=== PATIENT | female | born 1935 | race Caucasian/White ===

== ENCOUNTER 2016-06-10 16:45 | Emergency (ER) | payer MEDICARE, OTHER ==
[2016-06-10 16:59] VITALS: TEMP 96.7; BMI 22.2
--- NOTE | 2016-06-10 17:31 | PDOC ---
History of Present Illness - General History Source: Patient Exam Limitations: No Limitations - History of Present Illness Initial Comments: 06/10/16 18:57 The patient is a 80 year old female, with significant past medical history HIV, vertigo, HTN, anemia who presents today with family after an episode of vertigo that caused her to fall and hit her head. The patient was apparently in her usual state of health this morning. Sometime in the afternoon she felt unwell with nausea, vomiting, and dizziness. One of her daughters got a call from her at 3:00pm. The patient had little memory of the incident and they are unsure where she fell.There is a hematoma to the right forehead as evidence of the fall. She reports localized pain to the forehead and dizziness. Her symptoms are exacerbated secondary to sitting up. Denies chest pain, SOB, palpitation, cough. Allergies: codeine PCP- Dr. Currie <Meliza Amin - Last Filed: 06/10/16 18:56> - General History Source: Patient Exam Limitations: No Limitations <Debra Little - Last Filed: 06/13/16 07:32> - General Chief Complaint: Lightheaded Stated Complaint: INJURY Time Seen by Provider: 06/10/16 17:07 Past History <Meliza Amin - Last Filed: 06/10/16 18:56> - Past Medical History Anemia: Yes Asthma: No Cancer: No Cardiac Disorders: No CVA: No COPD: No CHF: No Dementia: No Diabetes: No Dialysis: No GI Disorders: No Disorders: No HTN: Yes Hypercholesterolemia: No HIV: Yes Kidney Stones: No Liver Disease: No Suicide Attempt (Hx): No Seizures: No Thyroid Disease: No Other medical history: vertigo - Surgical History Abdominal Surgery: Yes (lg growth removed from rectum) Appendectomy: Yes Cardiac Surgery: No Cholecystectomy: Yes GI Surgery: Yes (lg growth removed from rectum) Lung Surgery: No Neurologic Surgery: No Orthopedic Surgery: No - Immunization History Td Vaccination: Yes Immunization Up to Date: Yes - Psycho/Social/Smoking Cessation Hx Anxiety: No Suicidal Ideation: No Smoking Status: No Smoking History: Never smoked Have you smoked in the past 12 months: No Number of Cigarettes Smoked Daily: 0 Cigars Per Day: 0 Information on smoking cessation initiated: No Hx Alcohol Use: No Drug/Substance Use Hx: No Substance Use Type: None Hx Substance Use Treatment: No <Debra Little - Last Filed: 06/13/16 07:32> - Past Medical History Allergies/Adverse Reactions: Allergies Allergy/AdvReac Type Severity Reaction Status Date / Time codeine [Codeine] Allergy Unknown Verified 06/10/16 16:59 Home Medications: Ambulatory Orders Bimatoprost [Lumigan] 1 drop IO DAILY #1 bottle 12/31/15 Brimonidine Tartrate/Timolol [Combigan Eye Drops] 5 ml OP DAILY #1 bottle Cyproheptadine [Periactin -] 4 mg PO HS #30 tablet 02/20/16 Abacavir Sulfate/Lamivudine [Epzicom Tablet] 1 tablet PO DAILY #30 tablet Aspirin [Aspirin EC] 81 mg PO DAILY #30 tablet. 06/09/16 Cholecalciferol (Vitamin D3) [Vitamin D3] 50,000 unit PO WEEKLY #4 capsule 06/09 Rilpivirine HCl [Edurant] 25 mg PO DAILY #30 tablet 06/09/16 Amox-Tr/K Cl [Augmentin 500Mg Tablet] 1 tab PO BID #20 tablet 06/10/16 Meclizine HCl 25 mg PO TID #30 tablet 06/10/16 Ondansetron [Zofran *Odt*] 4 mg SL TID #30 od.tablet 06/10/16 Review of Systems - Review of Systems Able to Perform ROS?: Yes Comments:: 06/10/16 18:57 GENERAL/CONSTITUTIONAL: No: fever, chills, weakness, loss of appetite. HEAD, EYES, EARS, NOSE AND THROAT: No: change in vision, ear pain, discharge, sore throat, throat swelling. CARDIOVASCULAR: No: chest pain, lightheadedness, palpitations, syncope RESPIRATORY: No: cough, shortness of breath, wheezing, hemoptysis, stridor. GASTROINTESTINAL: Yes: nausea, vomiting. No: abdominal cramping, diarrhea, rectal bleeding, constipation. GENITOURINARY: No: dysuria, hematuria, frequency, urgency, flank pain. MUSCULOSKELETAL: No: back pain, neck pain, joint pain, muscle swelling or pain SKIN: No: lesions, pallor, rash or easy bruising. NEUROLOGIC: Yes: dizziness. No: headache, vertigo, paresthesias, weakness ENDOCRINE: No: unexplained weight gain or loss HEMATOLOGIC/LYMPHATIC: No: anemia, easy bleeding, swelling nodes <JarrodirisMeliza james - Last Filed: 06/10/16 18:56> *Physical Exam - Vital Signs Last Vital Signs Temp Pulse Resp BP Pulse Ox 96.7 F L 92 H 18 148/70 99 06/10/16 16:56 06/10/16 16:56 06/10/16 16:56 06/10/16 16:56 06/10/16 16:56 - Physical Exam Comments: 06/10/16 18:57 GENERAL: The patient is alert to voice,in no acute distress. HEAD: +hematoma to the right forehead. EYES: PERRLA, horizontal nystagmus, no vertical no rotary nystagmus. EOMI, sclera anicteric, conjunctiva clear. ENT: Ears normal, nares patent, oropharynx clear without exudates. Dry mucous membranes. NECK: Normal range of motion, supple without lymphadenopathy, JVD, or masses. LUNGS: Breath sounds equal, clear to auscultation bilaterally. No wheezes, and no crackles. HEART:Regular rate and rhythm, normal S1 and S2 without murmur, rub or gallop. ABDOMEN: Soft, nontender, normoactive bowel sounds. No guarding, no rebound. EXTREMITIES: Normal range of motion, no edema. No clubbing or cyanosis. No erythema, or tenderness. NEUROLOGICAL: Normal finger to nose. No dysdiadokinesis. Cranial nerves II through XII grossly intact. Normal speech. No focal neurological deficits. MUSCULOSKELETAL: Back nontender to palpation, no CVA tenderness SKIN: Warm, Dry, normal turgor, no rashes or lesions noted. <EloisaMeliza - Last Filed: 06/10/16 18:56> - Vital Signs Last Vital Signs Temp Pulse Resp BP Pulse Ox 96.7 F L 92 H 18 148/70 99 06/10/16 16:56 06/10/16 16:56 06/10/16 16:56 06/10/16 16:56 06/10/16 16:56 <Debra Little - Last Filed: 06/13/16 07:32> Heart Score/ECG Review #1 ECG reviewed & interpreted by me at: 18:29 06/10/16 18:29 Twelve-lead EKG was performed and reviewed by me. There is normal sinus rhythm with a normal rate of 86 bpm. The axis is normal. The intervals are abnormal - pr:216ms, QRS:70ms, QTc:452ms. There are no ST elevations or depressions. T waves nml <Debra Little - Last Filed: 06/13/16 07:32> ED Treatment Course - LABORATORY CBC & Chemistry Diagram: 06/10/16 18:28 06/10/16 18:28 - ADDITIONAL ORDERS Additional order review: 06/10/16 18:28 RBC 4.34 MCV 100.4 H MCHC 32.1 RDW 14.3 MPV 9.1 Neutrophils % 88.7 H D Lymphocytes % 7.9 L D Monocytes % 3.0 L Eosinophils % 0.1 D Basophils % 0.3 - Medications Given in the ED: ED Medications Discontinued Medications Generic Name Dose Route Start Last Admin Trade Name Freq PRN Reason Stop Dose Admin Meclizine HCl 50 mg 06/10/16 18:13 06/10/16 18:42 Antivert - PO 06/10/16 18:14 50 mg ONCE ONE Administration Ondansetron HCl 4 mg 06/10/16 18:13 06/10/16 18:42 Zofran Injection IVPB 06/10/16 18:14 4 mg ONCE ONE Administration <Meliza Amin - Last Filed: 06/10/16 18:56> - LABORATORY CBC & Chemistry Diagram: 06/10/16 18:28 06/10/16 18:28 <Debra Little - Last Filed: 06/13/16 07:32> Medical Decision Making - Medical Decision Making 06/10/16 17:31 A portion of this note was documented by scribe services under my direction. I have reviewed the details of the note, within reason, and agree with the documentation with the following case summary and management plan written by me. Nursing documentation reviewed and incorporated into medical decision making This pt is a 80 yo F h/o HIV (on HAART) vertigo, HTN, anemia who presents today with family after an episode of vertigo that caused her to fall and hit her head. Pt was able to get herself up and called her daughter for help She has no memory of the events preceding her fall (+) nausea, vomiting Her symptoms are exacerbated secondary to sitting up. Pt struck her right forehead Denies preceding chest pain, SOB, palpitation Pt has horizontal nystagmus on examination Nml finger to nose (no pass pointing) Symptoms worsen when pt asked to sit forward Motor strength in tact in all extremities Sensation in tact will do labs will do Head CT Will give IVF, Zofan, Meclizine Pt signed out to Dr carney pending labs and head CT and re assessment <Debra Little - Last Filed: 06/13/16 07:32> *DC/Admit/Observation/Transfer - Attestations Scribe Attestion: 06/10/16 18:57 Documentation prepared by ARSENIO Forrester, acting as medical art therapist for Debra Little MD. <Meliza Amin - Last Filed: 06/10/16 18:56> <Debra Little - Last Filed: 06/13/16 07:32> Diagnosis at time of Disposition: Mastoiditis of left side, Closed head injury - Discharge Dispostion Disposition: HOME - Prescriptions Prescriptions: Amox-Tr/K Cl [Augmentin 500Mg Tablet] 1 tab PO BID #20 tablet Meclizine HCl 25 mg PO TID #30 tablet Ondansetron [Zofran *Odt*] 4 mg SL TID #30 od.tablet - Referrals Referrals: Tete Currie, ADMINISTRATIVE UNDERWRITER [Primary Care Provider] - - Patient Instructions Printed Discharge Instructions: DI for Closed Head Injury, DI for Mastoiditis- Adult
[2016-06-10] MEDS ORDERED: SODIUM CHLORIDE 1,000 ML IV STA (18:12)
[2016-06-10] MEDS ORDERED: ONDANSETRON 4 MG/2 ML VIAL IVPB ONE (18:13)
[2016-06-10] MEDS ORDERED: MECLIZINE HCL 25 MG TABLET (FP) PO ONE (18:13)
[2016-06-10] MEDS ORDERED: MECLIZINE HCL 25 MG TABLET (FP) ONE (18:29)
[2016-06-10] MEDS ORDERED: ONDANSETRON 4 MG/2 ML VIAL ONE (18:29)
[2016-06-10 18:49] LABS: BASOPHIL 0.3 % (0-2.0); EOSINOPHIL 0.1 % (0-4.5); MCH 32.2 pg (25.7-33.7); MCHC 32.1 g/dl (32.0-36.0); MEAN CELL VOLUME 100.4 fl (80-96); MEAN PLT VOLUME 9.1 fl (7.5-11.1); NEUTROPHILS 88.7 % (42.8-82.8); PLATELET COUNT 337 K/MM3 (134-434); RDW 14.3 % (11.6-15.6)
[2016-06-10 19:15] LABS: ALBUMIN 3.7 g/dl (3.4-5.0); ANION GAP 7 (8-16); CO2 27 mmol/L (21-32); CREATININE 1.1 mg/dL (0.55-1.02); GLUCOSE,RANDOM 139 mg/dL (74-106); SGOT/AST 21 U/L (15-37); SGPT/ALT 22 U/L (12-78)
[2016-06-10 19:18] LABS: ALK PHOS 134 U/L (45-117); BILIRUBIN,TOTAL 0.4 mg/dL (0.2-1.0); TOT PROT 7.9 g/dl (6.4-8.2); TROPONIN I < 0.02 ng/ml (0.00-0.05)
--- NOTE | 2016-06-10 20:33 | PDOC ---
*Physical Exam - Vital Signs Last Vital Signs Temp Pulse Resp BP Pulse Ox 96.7 F L 92 H 18 148/70 99 06/10/16 16:56 06/10/16 16:56 06/10/16 16:56 06/10/16 16:56 06/10/16 16:56 ED Treatment Course - LABORATORY CBC & Chemistry Diagram: 06/10/16 18:28 06/10/16 18:28 - ADDITIONAL ORDERS Additional order review: Laboratory Results 06/10/16 18:28 Sodium 138 Potassium 3.8 Chloride 104 Carbon Dioxide 27 Anion Gap 7 L BUN 12 Creatinine 1.1 H Creat Clearance w eGFR 48.04 Random Glucose 139 H D Calcium 9.0 Total Bilirubin 0.4 AST 21 ALT 22 D Alkaline Phosphatase 134 H Creatine Kinase 77 Troponin I < 0.02 Total Protein 7.9 Albumin 3.7 06/10/16 18:28 RBC 4.34 MCV 100.4 H MCHC 32.1 RDW 14.3 MPV 9.1 Neutrophils % 88.7 H D Lymphocytes % 7.9 L D Monocytes % 3.0 L Eosinophils % 0.1 D Basophils % 0.3 - Medications Given in the ED: ED Medications Discontinued Medications Generic Name Dose Route Start Last Admin Trade Name Freq PRN Reason Stop Dose Admin Meclizine HCl 50 mg 06/10/16 18:13 06/10/16 18:42 Antivert - PO 06/10/16 18:14 50 mg ONCE ONE Administration Ondansetron HCl 4 mg 06/10/16 18:13 06/10/16 18:42 Zofran Injection IVPB 06/10/16 18:14 4 mg ONCE ONE Administration *DC/Admit/Observation/Transfer Diagnosis at time of Disposition: Mastoiditis of left side Closed head injury Qualifiers: Encounter type: initial encounter Qualified Code(s): S09.90XA - Unspecified injury of head, initial encounter - Discharge Dispostion Disposition: HOME Condition at time of disposition: Stable Admit: No - Referrals Referrals: Tete Currie BUTCHER SCULLION [Primary Care Provider] - - Patient Instructions Printed Discharge Instructions: DI for Closed Head Injury, DI for Mastoiditis- Adult - Post Discharge Activity
[2016-06-10] MEDS ORDERED: CEFTRIAXONE 50 ML ONE (20:42)
[2016-06-10 23:02] VITALS: BP 124/70; PULSE 72
--- NOTE | 2016-06-11 09:36 | EKG ---
Test Reason : Blood Pressure : / mmHG Vent. Rate : 086 BPM Atrial Rate : 086 BPM P-R Int : 216 ms QRS Dur : 070 ms QT Int : 378 ms P-R-T Axes : 041 021 038 degrees QTc Int : 452 ms SINUS RHYTHM WITH 1ST DEGREE A-V BLOCK OTHERWISE NORMAL ECG WHEN COMPARED WITH ECG OF 23-DEC-2014 08:53, [place] INTERVAL HAS INCREASED Confirmed by NETTIE JUDGE, CELESTINO ([id number]) on 06/11/2016 9:36:38 AM Referred By: Confirmed By:CELESTINO SHEFFIELD MD
== END 2016-06-10 21:40 | disposition home or self-care (01) ==
LOC: JER 16:45
PROC: 3E03329 Introduction of Other Anti-infective into Peripheral Vein, Percutaneous Approach (ICD-10-PCS; principal; 2016-06-10)
PROC: 3E033GC Introduction of Other Therapeutic Substance into Peripheral Vein, Percutaneous Approach (ICD-10-PCS; 2016-06-10)
DX: S09.8XXA Other specified injuries of head, initial encounter (principal); S00.83XA Contusion of other part of head, initial encounter; H70.892 Other mastoiditis and related conditions, left ear; I10 Essential (primary) hypertension; D64.9 Anemia, unspecified; B20 Human immunodeficiency virus [HIV] disease; W19.XXXA Unspecified fall, initial encounter; Y93.89 Activity, other specified; Y92.038 Other place in apartment as the place of occurrence of the external cause
CPT/HCPCS: 36415; 70450-TC; 80053; 82550; 84484; 85025; 93005; 93010; 96374; 96375; 99284-25

== ENCOUNTER 2018-04-03 10:25 | Emergency (ER) | payer OTHER ==
[2018-04-03] MEDS ORDERED: SODIUM CHLORIDE 0.9% 500 ML INFUS.BAG IV ONE (10:44)
--- NOTE | 2018-04-03 10:52 | PDOC ---
History of Present Illness - General History Source: Patient, Family (daughter) Exam Limitations: Clinical Condition - History of Present Illness Initial Comments: 04/03/18 10:47 Patient with history of HIV positive on rodriguez therapy present with complain of nausea, vomiting and diarrhea since last night. Patient reported 4 episodes of diarrhea which she described as nonbloody. Patient report 1 episode of vomiting this morning which is nonbilious. Patient denies fever, chills, urinary frequency or urgency or abdominal pain. Patient denies any other symptoms Timing/Duration: 24 hours <Ildefonso Chiu - Last Filed: 04/03/18 12:59> <Clau Duvall - Last Filed: 04/03/18 13:18> - General Chief Complaint: Vomiting/Diarrhea Stated Complaint: VOMITING & DIARRHEA Time Seen by Provider: 04/03/18 10:36 Past History - Past Medical History Anemia: Yes Asthma: No Cancer: No Cardiac Disorders: No CVA: No COPD: No CHF: No Dementia: No Diabetes: No Dialysis: No GI Disorders: No Disorders: No HTN: Yes Hypercholesterolemia: No Kidney Stones: No Liver Disease: No Seizures: No Thyroid Disease: No - Surgical History Abdominal Surgery: Yes (lg growth removed from rectum) Appendectomy: Yes Cardiac Surgery: No Cholecystectomy: Yes GI Surgery: Yes (lg growth removed from rectum) Lung Surgery: No Neurologic Surgery: No Orthopedic Surgery: No - Immunization History Td Vaccination: Yes Immunization Up to Date: Yes - Suicide/Smoking/Psychosocial Hx Smoking Status: No Smoking History: Unknown if ever smoked Have you smoked in the past 12 months: No Number of Cigarettes Smoked Daily: 0 Cigars Per Day: 0 Hx Alcohol Use: No Drug/Substance Use Hx: No Substance Use Type: None Hx Substance Use Treatment: No <Ildefonso Chiu - Last Filed: 04/03/18 12:59> <Clau Duvall - Last Filed: 04/03/18 13:18> - Past Medical History Allergies/Adverse Reactions: Allergies Allergy/AdvReac Type Severity Reaction Status Date / Time codeine [Codeine] Allergy Unknown Verified 06/10/16 16:59 Home Medications: Ambulatory Orders Abacavir Sulfate/Lamivudine [Epzicom Tablet] 1 tablet PO DAILY #30 tablet Aspirin [Aspirin EC] 81 mg PO DAILY #30 tablet. 10/21/17 Brimonidine Tartrate/Timolol [Combigan 0.2%-0.5% Eye Drops] 5 ml OP DAILY #1 bottle 10/21/17 Rilpivirine HCl [Edurant] 25 mg PO DAILY #30 tablet 10/21/17 Butalb/Acetaminophen/Caffeine [Fioricet 50-300-40 mg Capsule] 1 each PO Q6H PRN #12 capsule 04/03/18 Ciprofloxacin HCl [Cipro] 500 mg PO BID 5 Days #10 tablet 04/03/18 Famotidine [Pepcid] 20 mg PO DAILY #5 tablet 04/03/18 Ondansetron [Zofran Odt -] 4 mg SL TID PRN #21 od.tablet 04/03/18 Review of Systems - Review of Systems Able to Perform ROS?: Yes Is the patient limited [place] proficient: No Constitutional: Yes: Malaise, Weakness. No: Chills, Fever HEENTM: No: Eye Pain, Blurred Vision, Tearing, Recent change in vision, Double Vision, Cataracts, Ear Pain, Ocular Prothesis, Ear Discharge, Nose Pain, Nose Congestion, Tinnitus, Nose Bleeding, Hearing Loss, Throat Pain, Throat Swelling , Mouth Pain, Dental Problems, Difficulty Swallowing, Mouth Swelling, Other Respiratory: No: Cough, Orthopnea, Shortness of Breath, SOB with Exertion, SOB at Rest, Stridor, Wheezing, Productive cough, Hemoptysis, Other Cardiac (ROS): No: Chest Pain, Edema, Irregular Heart Rate, Lightheadedness, Palpitations, Syncope, Chest Tightness, Other ABD/GI: Yes: See HPI, Diarrhea, Nausea, Vomiting. No: Abdominal Distended, Abd. Pain w/ defecation, Blood Streaked Bowels, Poor Appetite, Rectal Bleeding, Abdominal cramping, Tarry Stools : No: Burning, Dysuria, Discharge, Frequency, Flank Pain, Hematuria, Urgency All Other Systems: Reviewed and Negative <Ildefonso Chiu - Last Filed: 04/03/18 12:59> *Physical Exam - Vital Signs Last Vital Signs Temp Pulse Resp BP Pulse Ox 98 F 85 20 163/77 98 04/03/18 10:35 04/03/18 10:35 04/03/18 10:35 04/03/18 10:35 04/03/18 10:35 - Physical Exam Comments: 04/03/18 10:50 GENERAL: Well developed, well nourished. Awake and alert. No acute distress laying in bed HEENT: Normocephalic, atraumatic. PERRLA, EOMI. No conjunctival pallor. Sclera are non- icteric. Moist mucous membranes. Oropharynx is clear. NECK: Supple. Full ROM. No JVD. Carotid pulses 2+ and symmetric, without bruits. No thyromegaly. No lymphadenopathy. CARDIOVASCULAR: Regular rate and rhythm. No murmurs, rubs, or gallops. Distal pulses are 2+ and symmetric. PULMONARY: No evidence of respiratory distress. Lungs clear to auscultation bilaterally. No wheezing, rales or rhonchi. ABDOMINAL: Soft. Non-tender. Non-distended. No rebound or guarding. No organomegaly. Normoactive bowel sounds. MUSCULOSKELETAL Normal range of motion at all joints. No bony deformities or tenderness. No CVA tenderness. EXTREMITIES: No cyanosis. No clubbing. No edema. No calf tenderness. SKIN: Warm and dry. Normal capillary refill. No rashes. No jaundice. NEUROLOGICAL: Alert, awake, appropriate. Gait is normal without ataxia. PSYCHIATRIC: Cooperative. Good eye contact. Appropriate mood and affect. General Appearance: Yes: Nourished, Appropriately Dressed. No: Apparent Distress <Ildefonso Chiu - Last Filed: 04/03/18 12:59> - Vital Signs Last Vital Signs Temp Pulse Resp BP Pulse Ox 98 F 85 20 163/77 98 04/03/18 10:35 04/03/18 10:35 04/03/18 10:35 04/03/18 10:35 04/03/18 10:35 <Clau Duvall - Last Filed: 04/03/18 13:18> ED Treatment Course - LABORATORY CBC & Chemistry Diagram: 04/03/18 10:45 04/03/18 10:45 <Ildefonso Chiu - Last Filed: 04/03/18 12:59> - LABORATORY CBC & Chemistry Diagram: 04/03/18 10:45 04/03/18 10:45 - ADDITIONAL ORDERS Additional order review: Laboratory Results 04/03/18 04/03/18 04/03/18 11:28 11:21 10:45 Sodium 139 Potassium 4.9 Chloride 107 Carbon Dioxide 23 Anion Gap 9 BUN 9 Creatinine 0.9 Creat Clearance w eGFR > 60 Random Glucose 173 H Lactic Acid 1.6 Calcium 8.6 Total Bilirubin 0.5 AST 41 H ALT 19 Alkaline Phosphatase 101 Total Protein 7.7 Albumin 3.4 Urine Color Ltyellow Urine Appearance Clear Urine pH 5.0 Ur Specific [place] 1.013 Urine Protein 2+ H Urine Glucose (UA) 1+ H Urine Ketones Negative Urine Blood 1+ H Urine Nitrite Negative Urine Bilirubin Negative Urine Urobilinogen Negative Ur Leukocyte Esterase 2+ H 04/03/18 10:45 RBC 4.10 MCV 104.3 H MCHC 34.4 RDW 14.4 Neutrophils % 72.6 D Lymphocytes % 19.3 D Monocytes % 6.2 Eosinophils % 1.3 Basophils % 0.6 - Medications Given in the ED: ED Medications Discontinued Medications Generic Name Dose Route Start Last Admin Trade Name Albertq PRN Reason Stop Dose Admin Acetaminophen 650 mg 04/03/18 12:42 04/03/18 12:45 Tylenol - PO 04/03/18 12:43 650 mg ONCE ONE Administration Famotidine/Sodium Chloride 20 mg in 50 mls @ 100 mls/hr 04/03/18 11:31 11:54 Pepcid 20 Mg Premixed Ivpb - IVPB 04/03/18 12:00 100 mls/hr ONCE ONE Administration Ondansetron HCl 8 mg 04/03/18 11:31 04/03/18 11:54 Zofran Injection IVPB 04/03/18 11:32 8 mg ONCE ONE Administration Sodium Chloride 500 ml 04/03/18 10:44 04/03/18 10:55 Normal Saline - IV 04/03/18 10:45 500 ml ONCE ONE Administration <Clau Duvall - Last Filed: 04/03/18 13:18> Medical Decision Making - Medical Decision Making 04/03/18 10:50 Patient with history of HIV positive on meds present with complain of diarrhea, nausea and vomiting since last night. Patient with no fever or chills but reported weakness this morning. Clinical exam unremarkable. CBC, CMP and lactate levels ordered. UA urine culture ordered. IV hydration with 500mg normal saline ordered. Treat based on lab results. Will consider abdominal CT of abnormal lab 04/03/18 12:30 CBC/CMP with no acute findings. UA shows mild leukocytes. symptoms improved with IV hydration and pepcid with zofran. no need for abdominal given improved symptoms and lab values. symptoms likely gastroenteritis with possible UTI. patient will be discharged home on cipro, pepcid and zofran with GI follow-up as needed <Ildefonso Chiu - Last Filed: 04/03/18 12:59> - Medical Decision Making The patient was seen and evaluated in conjunction with midlevel provider under my direct supervision, ancillary studies were reviewed. I agree with the plan as outlined by CARLOS Markham 82 YOF with HIV compliant with haart p/w n/v/d since last night. no f/c. VS wnl, no fever, nontoxic appearing. labs and lytes wnl. UA with leuk esterase abdomen benign, no tenderness. NAD, CTAB and RRR. no CVAT given IVF and pepcid and analgesia. no indication for CT for now as normal labs including lactic, less likely ischemia and inflammation and infection. cipro x 1 week for diarrheal illness and possible UTI, f/u urine cx. rx zofran PRN nausea and vomiting hydration encouraged, supportive care. discharge in stable condition. pt and family made aware of impression and plan, agreeable. 04/03/18 13:18 <Clau Duvall - Last Filed: 04/03/18 13:18> *DC/Admit/Observation/Transfer - Discharge Dispostion Decision to Admit order: No <Ildefonso Chiu - Last Filed: 04/03/18 12:59> <Clau Duvall - Last Filed: 04/03/18 13:18> Diagnosis at time of Disposition: Gastroenteritis Nausea & vomiting Qualifiers: Vomiting type: unspecified Vomiting Intractability: non-intractable Qualified Code(s): R11.2 - Nausea with vomiting, unspecified UTI (urinary tract infection) Qualifiers: Urinary tract infection type: site unspecified Hematuria presence: with hematuria Qualified Code(s): N39.0 - Urinary tract infection, site not specified - Discharge Dispostion Disposition: HOME Condition at time of disposition: Stable - Prescriptions Prescriptions: Butalb/Acetaminophen/Caffeine [Fioricet 50-300-40 mg Capsule] 1 each PO Q6H PRN #12 capsule PRN Reason: headache Ciprofloxacin HCl [Cipro] 500 mg PO BID 5 Days #10 tablet Famotidine [Pepcid] 20 mg PO DAILY #5 tablet Ondansetron [Zofran Odt -] 4 mg SL TID PRN #21 od.tablet PRN Reason: nausea and vomiting - Referrals Referrals: Tete Currie FNP [Primary Care Provider] - - Patient Instructions Printed Discharge Instructions: Gastroenteritis Diet Additional Instructions: Take medications as prescribed. Increase fluid intake., To emergency room if worsening nausea or vomiting or worsening abdominal pain. Follow-up with primary care as soon as possible the next 2-3 days for reassessment - Post Discharge Activity
[2018-04-03 11:06] VITALS: BP 163/77; PULSE 85; TEMP 98; BMI 21.6
[2018-04-03 11:12] LABS: BASO % 0.6 % (0-2.0); EOS % 1.3 % (0-4.5); HEMATOCRIT 42.8 % (32.4-45.2); HEMOGLOBIN 14.7 GM/dL (10.7-15.3); LYMPH % 19.3 % (8-40); MCH 35.8 pg (25.7-33.7); MCHC 34.4 g/dl (32.0-36.0); MEAN CELL VOLUME 104.3 fl (80-96); MONO % 6.2 % (3.8-10.2); NEUT % 72.6 % (42.8-82.8); RDW 14.4 % (11.6-15.6); WHITE BLOOD COUNT 7.2 K/mm3 (4.0-10.0)
[2018-04-03] MEDS ORDERED: FAMOTIDINE 20 MG/50 ML IVPB 20 MG/50 ML MG IVPB ONE ×2 (11:31→11:45)
[2018-04-03] MEDS ORDERED: ONDANSETRON 4 MG/2 ML VIAL IVPB ONE (11:31)
[2018-04-03 11:43] LABS: ALBUMIN 3.4 g/dl (3.4-5.0); ALK PHOS 101 U/L (45-117); ANION GAP 9 MMOL/L (8-16); BILIRUBIN,TOTAL 0.5 mg/dL (0.2-1); BLOOD UREA NITROGEN 9 mg/dL (7-18); CALCIUM 8.6 mg/dL (8.5-10.1); CHLORIDE 107 mmol/L (98-107); CO2 23 mmol/L (21-32); CREATININE 0.9 mg/dL (0.55-1.3); GLUCOSE,RANDOM 173 mg/dL (74-106); POTASSIUM 4.9 mmol/L (3.5-5.1); SGOT/AST 41 U/L (15-37); SGPT/ALT 19 U/L (13-61); SODIUM 139 mmol/L (136-145); TOT PROT 7.7 g/dl (6.4-8.2)
[2018-04-03 11:43] LABS: URINE APPEARANCE CLEAR; URINE BILIRUBIN NEGATIVE (<2.0 mg/dL); URINE COLOR LTYELLOW; URINE GLUCOSE (UA) 1+ (NEGATIVE); URINE KETONE NEGATIVE (NEGATIVE); URINE LEUK ESTERASE 2+ (NEGATIVE); URINE NITRITE NEGATIVE (NEGATIVE); URINE PROTEIN 2+ (NEGATIVE); URINE UROBILINOGEN NEGATIVE mg/dL (0.2-1.0)
[2018-04-03] MEDS ORDERED: ONDANSETRON 4 MG/2 ML VIAL ONE (11:45)
[2018-04-03] MEDS ORDERED: ACETAMINOPHEN 325 MG TABLET (FP) PO ONE (12:42)
[2018-04-03] MEDS ORDERED: ACETAMINOPHEN 325 MG TABLET (FP) ONE (12:45)
[2018-04-03 12:49] LABS: EPI CELLS FEW /HPF (FEW)
[2018-04-03 12:53] LABS: PLATELET ESTIMATE ADEQUATE
[2018-04-03] MEDS ORDERED: CIPROFLOXACIN 500 MG TABLET (RESTRICTED TO ID) PO ONE (14:14)
== END 2018-04-03 14:51 | disposition home or self-care (01) ==
LOC: JER 10:25
PROC: 3E033GC Introduction of Other Therapeutic Substance into Peripheral Vein, Percutaneous Approach (ICD-10-PCS; principal; 2018-04-03)
DX: K52.9 Noninfective gastroenteritis and colitis, unspecified (principal); N39.0 Urinary tract infection, site not specified; B20 Human immunodeficiency virus [HIV] disease; I10 Essential (primary) hypertension; Z86.2 Personal history of diseases of the blood and blood-forming organs and certain disorders involving the immune mechanism
CPT/HCPCS: 36415; 80053; 81003; 81015; 83605; 85025; 87086; 96365; 99282-25

== ENCOUNTER 2018-05-01 08:29 | Emergency (ER) | payer MEDICARE, OTHER ==
[2018-05-01 08:57] VITALS: BP 155/84; PULSE 83; TEMP 98.1; BMI 23.3
--- NOTE | 2018-05-01 09:04 | PDOC ---
History of Present Illness <Lorraine Mari - Last Filed: 05/01/18 10:36> - History of Present Illness Initial Comments: 82 year old female with PMH of colorectal cancer (s/p resection), chronic constipation, hemorrhoids, and HIV positive (rodriguez therapy) presenting with rectal pain after defecation and lower abdominal pain. Patient states that she has been constipated for the last few days but was able to use the bathroom yesterday after using a suppository. She does use soaks in the bath occasionally as well too but without much relief of her hemorrhoids. She denies blood in the stool or on her toilet paper. Denies fevers, chills, nausea, vomiting, chest pain, SOB, or other symptoms. 05/01/18 14:52 <Nik Jiménez - Last Filed: 05/01/18 19:08> - General Chief Complaint: Pain Stated Complaint: LOWER BACK PAIN Time Seen by Provider: 05/01/18 09:04 Past History <Lorraine Mari - Last Filed: 05/01/18 10:36> - Past Medical History Anemia: Yes Asthma: No Cancer: No Cardiac Disorders: No CVA: No COPD: No CHF: No Dementia: No Diabetes: No Dialysis: No GI Disorders: No Disorders: No HTN: Yes Hypercholesterolemia: No Kidney Stones: No Liver Disease: No Seizures: No Thyroid Disease: No - Surgical History Abdominal Surgery: Yes (lg growth removed from rectum) Appendectomy: Yes Cardiac Surgery: No Cholecystectomy: Yes GI Surgery: Yes (lg growth removed from rectum) Lung Surgery: No Neurologic Surgery: No Orthopedic Surgery: No - Immunization History Td Vaccination: Yes Immunization Up to Date: Yes - Suicide/Smoking/Psychosocial Hx Smoking Status: No Smoking History: Never smoked Have you smoked in the past 12 months: No Number of Cigarettes Smoked Daily: 0 Cigars Per Day: 0 Information on smoking cessation initiated: No Hx Alcohol Use: No Drug/Substance Use Hx: No Substance Use Type: None Hx Substance Use Treatment: No <Nik Jiménez - Last Filed: 05/01/18 19:08> - Past Medical History Allergies/Adverse Reactions: Allergies Allergy/AdvReac Type Severity Reaction Status Date / Time codeine [Codeine] Allergy Unknown Verified 05/01/18 08:47 Home Medications: Ambulatory Orders Aspirin [Aspirin EC] 81 mg PO DAILY #30 tablet. 10/21/17 Brimonidine Tartrate/Timolol [Combigan 0.2%-0.5% Eye Drops] 5 ml OP DAILY #1 bottle 10/21/17 Abacavir Sulfate/Lamivudine [Epzicom Tablet] 1 tablet PO DAILY #30 tablet Rilpivirine HCl [Edurant] 25 mg PO DAILY #30 tablet 04/07/18 Docusate Sodium [Colace -] 100 mg PO TID #21 capsule 05/01/18 Sennosides [Senna] 8.6 mg PO HS PRN #30 tablet 05/01/18 Review of Systems - Review of Systems Constitutional: No: Chills, Diaphoresis, Fever, Loss of Appetite HEENTM: No: Blurred Vision, Tearing Respiratory: No: Cough, Orthopnea, Shortness of Breath Cardiac (ROS): No: Chest Pain, Edema, Irregular Heart Rate ABD/GI: Yes: Constipated. No: Blood Streaked Bowels, Diarrhea, Nausea, Rectal Bleeding, Vomiting : No: Dysuria, Discharge, Frequency Musculoskeletal: No: Joint Pain, Joint Swelling Integumentary: No: Lumps, Pallor, Pruritus, Rash Neurological: No: Headache, Numbness, Paresthesia Psychiatric: No: Anxiety, Depression, Frequent Crying Hematologic/Lymphatic: No: Anemia, Blood Clots, Easy Bleeding <Nik Jiménez - Last Filed: 05/01/18 19:08> *Physical Exam - Vital Signs Last Vital Signs Temp Pulse Resp BP Pulse Ox 98.1 F 83 18 155/84 98 05/01/18 08:48 05/01/18 08:48 05/01/18 08:48 05/01/18 08:48 05/01/18 08:48 <Lorraine Mari - Last Filed: 05/01/18 10:36> - Vital Signs Last Vital Signs Temp Pulse Resp BP Pulse Ox 98.1 F 83 18 155/84 98 05/01/18 08:48 05/01/18 08:48 05/01/18 08:48 05/01/18 08:48 05/01/18 08:48 - Physical Exam General Appearance: Yes: Nourished, Appropriately Dressed. No: Apparent Distress HEENT: positive: EOMI, [place], Normal ENT Inspection, Normal Voice Neck: positive: Trachea midline, Normal Thyroid, Supple. negative: Tender, Rigid Respiratory/Chest: positive: Lungs Clear, Normal Breath Sounds. negative: Chest Tender, Respiratory Distress Cardiovascular: positive: Regular Rhythm, Regular Rate Gastrointestinal/Abdominal: positive: Normal Bowel Sounds, Flat, Soft. negative : Tender Rectal Exam: positive: hemorrhoids (multiple large tender external hemorrhoids and one large internal hemorrhoid but all fluctuant/ reducible. No evidenceof thrombosis. No blood in rectal vault or sign or rectal bleed.). negative: normal exam Musculoskeletal: positive: Normal Inspection. negative: Decreased Range of Motion Extremity: positive: Normal Capillary Refill, Normal Inspection, Normal Range of Motion. negative: Tender Integumentary: positive: Normal Color, Dry, Warm Neurologic: positive: Fully Oriented, Alert, Normal Mood/Affect, Normal Response , Motor Strength 5/5 <Nik Jiménez - Last Filed: 05/01/18 19:08> Moderate Sedation - Procedure Monitoring Vital Signs: Procedure Monitoring Vital Signs Temperature 98.1 F 05/01/18 08:48 Pulse Rate 83 05/01/18 08:48 Respiratory Rate 18 05/01/18 08:48 Blood Pressure 155/84 05/01/18 08:48 O2 Sat by Pulse Oximetry (%) 98 05/01/18 08:48 <Lorraine Mari - Last Filed: 05/01/18 10:36> - Procedure Monitoring Vital Signs: Procedure Monitoring Vital Signs Temperature 98.1 F 05/01/18 08:48 Pulse Rate 83 05/01/18 08:48 Respiratory Rate 18 05/01/18 08:48 Blood Pressure 155/84 05/01/18 08:48 O2 Sat by Pulse Oximetry (%) 98 05/01/18 08:48 <Nik Jiménez - Last Filed: 05/01/18 19:08> ED Treatment Course - ADDITIONAL ORDERS Additional order review: Laboratory Results 05/01/18 10:00 Urine Color Straw Urine Appearance Clear Urine pH 6.0 Ur Specific [place] 1.009 L Urine Protein 2+ H Urine Glucose (UA) Negative Urine Ketones Trace H Urine Blood Negative Urine Nitrite Negative Urine Bilirubin Negative Urine Urobilinogen Negative Ur Leukocyte Esterase Trace <Lorraine Mari - Last Filed: 05/01/18 10:36> Medical Decision Making - Medical Decision Making 82 year old female with non-thrombosed, non-bleeding hemorrhoids and rectal pain during bowel movements. Also complaining of lower abdominal pain in the setting of constipation. UA negative and patient refusing further workup. Discharged with preparation H, instructions for sitz baths, and senna/ colace. DC'd with PCP follow up as well. 05/01/18 19:00 <Nik Jiménez - Last Filed: 05/01/18 19:08> *DC/Admit/Observation/Transfer - Discharge Dispostion Decision to Admit order: No <Lorraine Mari - Last Filed: 05/01/18 10:36> <Nik Jiménez - Last Filed: 05/01/18 19:08> Diagnosis at time of Disposition: External hemorrhoid Low back pain Qualifiers: Chronicity: unspecified Back pain laterality: unspecified Sciatica presence: without sciatica Qualified Code(s): M54.5 - Low back pain - Discharge Dispostion Disposition: HOME Condition at time of disposition: Stable - Prescriptions Prescriptions: Docusate Sodium [Colace -] 100 mg PO TID #21 capsule Sennosides [Senna] 8.6 mg PO HS PRN #30 tablet PRN Reason: Constipation - Referrals Referrals: Tete Currie [facility]SO [Primary Care Provider] - - Patient Instructions Printed Discharge Instructions: DI for Hemorrhoids Additional Instructions: Preparation H cream, apply as directed. - Post Discharge Activity
--- NOTE | 2018-05-01 09:53 | PDOC ---
Attending Attestation - Resident Resident Name: Nik Jiménez - ED Attending Attestation I have performed the following: I have examined & evaluated the patient, The case was reviewed & discussed with the resident, I agree w/resident's findings & plan, Exceptions are as noted - HPI HPI: 82 yo F colorectal cancer s/p resection, constipation, hemorrhoids, HIV on ART presents with rectal pain after defecation. She states she had constipation all of last week, was straining. Currently denies rectal pain, but does have mild low back pain. - Physicial Exam PE: GENERAL: Awake, alert, and fully oriented, in no acute distress HEAD: No signs of trauma EYES: PERRLA, EOMI, sclera anicteric, conjunctiva clear ENT: Auricles normal inspection, hearing grossly normal, nares patent, oropharynx clear without exudates. Moist mucosa NECK: Normal ROM, supple, no lymphadenopathy, JVD, or masses LUNGS: Breath sounds equal, clear to auscultation bilaterally. No wheezes, and no crackles HEART: Regular rate and rhythm, normal S1 and S2, no murmurs, rubs or gallops ABDOMEN: Soft, nontender, normoactive bowel sounds. No guarding, no rebound. No masses. No CVAT. EXTREMITIES: Normal range of motion, no edema. No clubbing or cyanosis. No cords, erythema, or tenderness NEUROLOGICAL: Cranial nerves II through XII grossly intact. Normal speech, normal gait SKIN: Warm, Dry, normal turgor, no rashes or lesions noted. - Medical Decision Making Stool softeners to prevent inflaming the hemorrhoids. No signs of acute abdomen. No signs of kidney stone. UA negative for signs of UTI.
[2018-05-01 10:19] LABS: URINE APPEARANCE CLEAR; URINE BILIRUBIN NEGATIVE (<2.0 mg/dL); URINE COLOR STRAW; URINE GLUCOSE (UA) NEGATIVE (NEGATIVE); URINE KETONE TRACE (NEGATIVE); URINE LEUK ESTERASE TRACE (NEGATIVE); URINE NITRITE NEGATIVE (NEGATIVE); URINE PROTEIN 2+ (NEGATIVE); URINE UROBILINOGEN NEGATIVE mg/dL (0.2-1.0)
[2018-05-01 10:36] LABS: EPI CELLS RARE /HPF (FEW); URINE MUCUS RARE
== END 2018-05-01 11:07 | disposition home or self-care (01) ==
LOC: JER 08:29
DX: M54.5 Low back pain (principal); K64.4 Residual hemorrhoidal skin tags; Z85.038 Personal history of other malignant neoplasm of large intestine; Z21 Asymptomatic human immunodeficiency virus [HIV] infection status
CPT/HCPCS: 81003; 81015; 99282-25

== ENCOUNTER 2019-02-16 16:58 | Inpatient (IN) | payer MEDICARE, OTHER ==
[2019-02-16] MEDS ORDERED: MECLIZINE HCL 25 MG TABLET (FP) PO ONE (17:10)
[2019-02-16] MEDS ORDERED: SODIUM CHLORIDE 1,000 ML IV STA (17:10)
[2019-02-16] MEDS ORDERED: ONDANSETRON 4 MG/2 ML VIAL IVPUSH ONE (17:10)
--- NOTE | 2019-02-16 17:10 | PDOC ---
Rapid Medical Evaluation Time Seen by Provider: 02/16/19 17:06 Medical Evaluation: Allergies Allergy/AdvReac Type Severity Reaction Status Date / Time codeine [Codeine] Allergy Unknown Verified 05/01/18 08:47 02/16/19 17:07 Patient presents to ED with complaints of: n/v and dizziness worse when sitting up, + vertigo, no meclizine taken due to n/v, no cp, sob, fever, hx hiv patient on brief exam: vss, actively dry heaving in triage Patient ordered for: labs, urine, ekg, meds, ivf, zofran Patient to proceed to the ED Discharge Disposition - Diagnosis Nausea, Leukocytosis, Vomiting, UTI (urinary tract infection) - Discharge Dispostion Condition at time of disposition: Fair - Referrals - Patient Instructions - Post Discharge Activity
[2019-02-16] MEDS ORDERED: ONDANSETRON *ODT* 4 MG TABLET SL ONE (18:02)
[2019-02-16] MEDS ORDERED: ONDANSETRON *ODT* 4 MG TABLET ONE (18:04)
[2019-02-16] MEDS ORDERED: MECLIZINE HCL 25 MG TABLET (FP) ONE (18:05)
[2019-02-16 18:06] LABS: BASO % 0.4 % (0-2.0); EOS % 0.8 % (0-4.5); HEMOGLOBIN 13.6 GM/dL (10.7-15.3); LYMPH % 7.7 % (8-40); MCH 34.4 pg (25.7-33.7); MCHC 32.3 g/dl (32.0-36.0); MEAN CELL VOLUME 106.6 fl (80-96); MEAN PLT VOLUME 8.9 fl (7.5-11.1); MONO % 6.4 % (3.8-10.2); NEUT % 84.7 % (42.8-82.8); PLATELET COUNT 331 K/MM3 (134-434); RBC 3.94 M/mm3 (3.60-5.2); RDW 14.6 % (11.6-15.6); WHITE BLOOD COUNT 18.1 K/mm3 (4.0-10.0)
[2019-02-16 18:34] LABS: EPI CELLS 8.2 /HPF (0-5/HPF); HYALINE CASTS 3 /lpf (0-8); URINE APPEARANCE CLEAR; URINE BACTERIA 16.8 /hpf (NEGATIVE); URINE BILIRUBIN 1+ (NEGATIVE); URINE COLOR DK YELLOW; URINE GLUCOSE (UA) NEGATIVE (NEGATIVE); URINE KETONE NEGATIVE (NEGATIVE); URINE LEUK ESTERASE 1+ (NEGATIVE); URINE NITRITE POSITIVE (NEGATIVE); URINE PROTEIN 3+ (NEGATIVE); URINE RBC 4 /hpf (0-4); URINE WBC 5 /hpf (0-5)
[2019-02-16 18:35] LABS: MAGNESIUM 2.5 mg/dL (1.8-2.4)
[2019-02-16 18:48] LABS: ALBUMIN 3.7 g/dl (3.4-5.0); BILIRUBIN,TOTAL 0.4 mg/dL (0.2-1); BLOOD UREA NITROGEN 14.6 mg/dL (7-18); CALCIUM 9.2 mg/dL (8.5-10.1); POTASSIUM 3.5 mmol/L (3.5-5.1); TOT PROT 7.6 g/dl (6.4-8.2)
--- NOTE | 2019-02-16 19:12 | PDOC ---
History of Present Illness - General Chief Complaint: Lightheaded Stated Complaint: VOMITTING/NAUSEA/ABD/PAIN Time Seen by Provider: 02/16/19 17:06 History Source: Patient Exam Limitations: No Limitations - History of Present Illness Initial Comments: 02/16/19 19:01 83 yo female pmh colon CA s/p resection, HIV (Last CD4 in the 700s, on PEDERSON therapy, seen at [facility]) presents to the ED for 3 hours of NB/NB vomiting and dizziness. Daughter at the bedside and helps provide HPI. Denies recent travel, sick contacts, recent illness, CP, SOB, back pain, changes in bowel or bladder habits. Pt does admit to michelle umbilical/suprapubic abdominal pain, last BM was 4 hours ago, normal formed stool. Past History - Past Medical History Allergies/Adverse Reactions: Allergies Allergy/AdvReac Type Severity Reaction Status Date / Time codeine [Codeine] Allergy Unknown Verified 02/16/19 17:10 Home Medications: Ambulatory Orders Abacavir Sulfate/Lamivudine [Epzicom Tablet] 1 tablet PO DAILY #30 tablet Brimonidine Tartrate/Timolol [Combigan 0.2%-0.5% Eye Drops] 1 drop OP DAILY #1 bottle 09/22/18 Aspirin [Aspirin EC] 1 tab PO DAILY #30 tablet. 02/09/19 Cyproheptadine [Periactin -] 1 tab PO HS #30 tablet 02/09/19 Rilpivirine HCl [Edurant] 1 tab PO DAILY #30 tablet 02/09/19 Anemia: Yes Asthma: No Cancer: No Cardiac Disorders: No CVA: No COPD: No CHF: No Dementia: No Diabetes: No Dialysis: No GI Disorders: No Disorders: No HTN: Yes Hypercholesterolemia: No Kidney Stones: No Liver Disease: No Seizures: No Thyroid Disease: No - Surgical History Abdominal Surgery: Yes (lg growth removed from rectum) Appendectomy: Yes Cardiac Surgery: No Cholecystectomy: Yes GI Surgery: Yes (lg growth removed from rectum) Lung Surgery: No Neurologic Surgery: No Orthopedic Surgery: No - Immunization History Td Vaccination: Yes Immunization Up to Date: Yes - Suicide/Smoking/Psychosocial Hx Smoking Status: No Smoking History: Never smoked Have you smoked in the past 12 months: No Number of Cigarettes Smoked Daily: 0 Cigars Per Day: 0 Information on smoking cessation initiated: No Hx Alcohol Use: No Drug/Substance Use Hx: No Substance Use Type: None Hx Substance Use Treatment: No Review of Systems - Review of Systems Constitutional: No: Chills, Fever HEENTM: No: Blurred Vision, Double Vision Respiratory: No: Shortness of Breath Cardiac (ROS): No: Chest Pain, Edema ABD/GI: Yes: Nausea, Vomiting. No: Constipated, Diarrhea : No: Burning, Dysuria, Discharge, Frequency, Flank Pain Musculoskeletal: No: Back Pain Integumentary: No: Change in Color Neurological: Yes: Dizziness. No: Headache, Numbness, Paresthesia, Weakness *Physical Exam - Vital Signs Last Vital Signs Temp Pulse Resp BP Pulse Ox 97.7 F 82 19 147/70 100 02/16/19 17:08 02/16/19 17:08 02/16/19 17:08 02/16/19 17:08 02/16/19 17:08 - Physical Exam General Appearance: Yes: Nourished, Appropriately Dressed. No: Apparent Distress HEENT: positive: EOMI Neck: positive: Supple. negative: Carotid bruit Respiratory/Chest: positive: Lungs Clear, Normal Breath Sounds. negative: Respiratory Distress, Accessory Muscle Use, Rapid RR, Crackles, Rales, Rhonchi, Stridor, Wheezing Cardiovascular: positive: Regular Rhythm, Regular Rate, S1, S2. negative: Edema , JVD, Murmur Vascular Pulses: Dorsalis-Pedis (R): 4+, Doralis-Pedis (L): 4+ Gastrointestinal/Abdominal: positive: Flat, Soft, Tenderness (diffuse, worse in the bilateral lower quadrants). negative: Pulsatile Mass, Distended, Guarding, Rebound Musculoskeletal: negative: CVA Tenderness Extremity: positive: Normal Capillary Refill, Normal Inspection, Normal Range of Motion Integumentary: positive: Normal Color, Dry, Warm Neurologic: positive: Fully Oriented, Alert, Normal Mood/Affect, Normal Response , Motor Strength / ED Treatment Course - LABORATORY CBC & Chemistry Diagram: 02/16/19 17:39 02/16/19 17:39 - ADDITIONAL ORDERS Additional order review: Laboratory Results 02/16/19 02/16/19 02/16/19 18:01 17:39 17:39 Sodium 141 Potassium 3.5 Chloride 104 Carbon Dioxide 29 Anion Gap 8 BUN 14.6 Creatinine 1.0 Est GFR (CKD-EPI)AfAm 61.19 Est GFR (CKD-EPI)NonAf 52.79 Random Glucose 127 H Calcium 9.2 Magnesium 2.5 H Total Bilirubin 0.4 AST 21 ALT 18 Alkaline Phosphatase 145 H Creatine Kinase 82 Troponin I < 0.02 Total Protein 7.6 Albumin 3.7 Urine Color Dk yellow Urine Appearance Clear Urine pH 5.0 Ur Specific [place] 1.015 Urine Protein 3+ H Urine Glucose (UA) Negative Urine Ketones Negative Urine Blood Trace Urine Nitrite Positive H Urine Bilirubin 1+ H Urine Urobilinogen 1.0 Ur Leukocyte Esterase 1+ H Urine WBC (Auto) 5 Urine RBC (Auto) 4 Urine Casts (Auto) 3 U Epithel Cells (Auto) 8.2 Urine Bacteria (Auto) 16.8 02/16/19 17:39 RBC 3.94 MCV 106.6 H MCHC 32.3 RDW 14.6 MPV 8.9 Neutrophils % 84.7 H D Lymphocytes % 7.7 L D Monocytes % 6.4 Eosinophils % 0.8 D Basophils % 0.4 - RADIOLOGY Radiology Studies Ordered: Category Date Time Status ABDOMEN & PELVIS CT WITH CONTR [CT] Stat CT Scan 02/16/19 18:34 Ordered - Medications Given in the ED: ED Medications Discontinued Medications Generic Name Dose Route Start Last Admin Trade Name Albertq PRN Reason Stop Dose Admin Meclizine HCl 25 mg 02/16/19 17:10 02/16/19 18:07 Antivert - PO 02/16/19 17:11 25 mg ONCE ONE Administration Ondansetron HCl 4 mg 02/16/19 18:02 02/16/19 18:07 Zofran Odt - SL 02/16/19 18:03 4 mg ONCE ONE Administration Medical Decision Making - Medical Decision Making 02/16/19 19:05 83 yo female pmh colon CA s/p resection, HIV (Last CD4 in the 700s, on PEDERSON therapy, seen at [facility]) presents to the ED for 3 hours of NB/NB vomiting and dizziness. Daughter at the bedside and helps provide HPI. Denies recent travel, sick contacts, recent illness, CP, SOB, back pain, changes in bowel or bladder habits. Pt does admit to michelle umbilical/suprapubic abdominal pain, last BM was 4 hours ago, normal formed stool. Vitals show WNL Pt awake alert, NAD On abdominal exam, diffuse abdominal tenderness worse in the bilateral lower quadrants Will do basic labs including lactate and APCT with PO and IV contrast r/o SBO vs Appy Labs show elevated WBC 18 02/16/19 21:24 UA positive for UTI, will treat with ceftriaxone and admit after CT results S/O to night team for further care and admission *DC/Admit/Observation/Transfer Diagnosis at time of Disposition: Dizziness - Referrals - Patient Instructions - Post Discharge Activity
--- NOTE | 2019-02-16 19:47 | PDOC ---
Documentation entered by Bassem Humphreys SCRIBE, acting as scribe for Yoly Pedersen DO. Yoly Pedersen DO: This documentation has been prepared by the Petr morales Daniel, SCRIBE, under my direction and personally reviewed by me in its entirety. I confirm that the documentation accurately reflects all work, treatment, procedures, and medical decision making performed by me. Attending Attestation - Resident Resident Name: StephenerikaBartolo - ED Attending Attestation I have performed the following: I have examined & evaluated the patient, The case was reviewed & discussed with the resident, I agree w/resident's findings & plan, Exceptions are as noted - HPI HPI: 02/16/19 18:32 The patient is an 83 year old female with a past medical history of colon cancer s/p resection and HIV here today for evaluation of abdominal pain and vomiting. The patient reports that she has had 3 hours of nausea, vomiting, diffuse abdominal pain, and dizziness. Patient denies headache. Denies fever, chills. Denies chest pain, shortness of breath. Denies diarrhea. Denies sick contacts or suspicious food intake. Allergies: codeine Surgical history: bunionectomy left foot, hysterectomy - Physicial Exam PE: 02/16/19 18:58 Constitutional: Awake, alert, oriented. No acute distress. Head: Normocephalic. Atraumatic Eyes: PERRL. EOMI. Conjunctivae are not pale. ENT: Mucous membranes are moist and intact. Posterior pharynx without exudates or erythema. Uvula midline. Neck: Supple. Full ROM. No lymphadenopathy. Cardiovascular: Regular rate. Regular rhythm. S1, S2 regular. Distal pulses are 2+ and symmetric. Pulmonary/Chest: No evidence of respiratory distress. Clear to auscultation bilaterally No wheezing, rales or rhonchi. Abdominal: Soft and non-distended. There is no tenderness. No rebound, guarding or rigidity. No organomegaly. No palpable masses. Good bowel sounds. Back: No CVA tenderness. Musculoskeletal: No edema. No cyanosis. No clubbing. Full range of motion in all extremities. No calf tenderness. Radial/pedal pulses are intact and 2+ bilaterally Skin: Skin is warm and dry. No petechiae. No purpura. Neurological: Alert and oriented to person, place, and time. Cranial nerves II -XII are grossly intact. Normal speech. Strength is grossly symmetric. No sensory deficits. Psychiatric: Good eye contact. Normal interaction, affect and behavior. - Medical Decision Making 02/16/19 19:39 I, Dr. Yoly Pedersen, DO, attest that this document has been prepared under my direction and personally reviewed by me in its entirety. I further attest, that it accurately reflects all work, treatment, procedures and medical decision -making performed by me. a/p: 83yo female with hx of becky, hyster, rectal sx for cancer with diffuse abd pain 3h precinct captain with assoc n/v -had a normal bm and flatus precinct captain -received zofran in triage and pt feels better -still with diffuse abd pain -pt denies diarrhea -will send labs, ct abd/pelvis -will give po and iv contast -nondistended abd 02/16/19 20:00 pt with uti will start rocephin last culture 2013 ecoli rea sensitive 02/16/19 23:02 no acute findings on ct pt with uti, abd pain, n/v and leukocytosis will admit for iv abx microblog sent to [facility] for admission - d [facility] 02/16/19 23:18 case discussed with [facility] who accepts pt to service *DC/Admit/Observation/Transfer Diagnosis at time of Disposition: Nausea, Leukocytosis, Vomiting, UTI (urinary tract infection) - Discharge Dispostion Condition at time of disposition: Fair Decision to Admit order: Yes - Referrals - Patient Instructions - Post Discharge Activity Heart Score/ECG Review - ECG Intrepretation Comment:: 02/16/19 21:10 sinus at 85, nl axis, nl interval, no acute st/t wave findings
[2019-02-16 19:58] LABS: MACROCYTOSIS 2+
[2019-02-16] MEDS ORDERED: CEFTRIAXONE 1 GM in DEXTROSE 5%-WATER - 100 ML IVPB ONE (19:59)
[2019-02-16] MEDS ORDERED: CEFTRIAXONE 1 GM/50 ML BAG ONE (20:08)
--- NOTE | 2019-02-16 22:23 | PDOC ---
*Physical Exam - Vital Signs Last Vital Signs Temp Pulse Resp BP Pulse Ox 97.7 F 82 19 147/70 100 02/16/19 17:08 02/16/19 17:08 02/16/19 17:08 02/16/19 17:08 02/16/19 17:08 ED Treatment Course - LABORATORY CBC & Chemistry Diagram: 02/16/19 17:39 02/16/19 17:39 - ADDITIONAL ORDERS Additional order review: Laboratory Results 02/16/19 02/16/19 02/16/19 18:45 18:01 17:39 Sodium 141 Potassium 3.5 Chloride 104 Carbon Dioxide 29 Anion Gap 8 BUN 14.6 Creatinine 1.0 Est GFR (CKD-EPI)AfAm 61.19 Est GFR (CKD-EPI)NonAf 52.79 Random Glucose 127 H Lactic Acid 1.5 Calcium 9.2 Magnesium Total Bilirubin 0.4 AST 21 ALT 18 Alkaline Phosphatase 145 H Creatine Kinase Troponin I Total Protein 7.6 Albumin 3.7 Urine Color Dk yellow Urine Appearance Clear Urine pH 5.0 Ur Specific [place] 1.015 Urine Protein 3+ H Urine Glucose (UA) Negative Urine Ketones Negative Urine Blood Trace Urine Nitrite Positive H Urine Bilirubin 1+ H Urine Urobilinogen 1.0 Ur Leukocyte Esterase 1+ H Urine WBC (Auto) 5 Urine RBC (Auto) 4 Urine Casts (Auto) 3 U Epithel Cells (Auto) 8.2 Urine Bacteria (Auto) 16.8 02/16/19 17:39 Sodium Potassium Chloride Carbon Dioxide Anion Gap BUN Creatinine Est GFR (CKD-EPI)AfAm Est GFR (CKD-EPI)NonAf Random Glucose Lactic Acid Calcium Magnesium 2.5 H Total Bilirubin AST ALT Alkaline Phosphatase Creatine Kinase 82 Troponin I < 0.02 Total Protein Albumin Urine Color Urine Appearance Urine pH Ur Specific [place] Urine Protein Urine Glucose (UA) Urine Ketones Urine Blood Urine Nitrite Urine Bilirubin Urine Urobilinogen Ur Leukocyte Esterase Urine WBC (Auto) Urine RBC (Auto) Urine Casts (Auto) U Epithel Cells (Auto) Urine Bacteria (Auto) 02/16/19 17:39 RBC 3.94 MCV 106.6 H MCHC 32.3 RDW 14.6 MPV 8.9 Neutrophils % 84.7 H D Lymphocytes % 7.7 L D Monocytes % 6.4 Eosinophils % 0.8 D Basophils % 0.4 - Medications Given in the ED: ED Medications Discontinued Medications Generic Name Dose Route Start Last Admin Trade Name Eitan PRN Reason Stop Dose Admin Sodium Chloride 1,000 mls @ 1,000 mls/hr 02/16/19 17:10 02/16/19 20:00 Normal Saline - IV 02/16/19 18:09 1,000 mls/hr ASDIR STA Administration Ceftriaxone Sodium 1 gm/ 100 mls @ 200 mls/hr 02/16/19 19:59 02/16/19 20:13 Dextrose IVPB 02/16/19 20:28 200 mls/hr ONCE ONE Administration Protocol Meclizine HCl 25 mg 02/16/19 17:10 02/16/19 18:07 Antivert - PO 02/16/19 17:11 25 mg ONCE ONE Administration Ondansetron HCl 4 mg 02/16/19 17:10 02/16/19 19:42 Zofran Injection IVPUSH 02/16/19 17:11 Not Given ONCE ONE Ondansetron HCl 4 mg 02/16/19 18:02 02/16/19 18:07 Zofran Odt - SL 02/16/19 18:03 4 mg ONCE ONE Administration Medical Decision Making - Medical Decision Making 02/16/19 22:[address] Lr 83yo woman with pmh HIV UTI, given Rocephan Pending CTAP with PO/IV for diffuse tenderness Admit for UTI (18K WBC, no CVA tenderness) 02/16/19 23:07 -CTAP with some fecal impaction, no acute processes -Microblog sent Dispo: Admit *DC/Admit/Observation/Transfer Diagnosis at time of Disposition: Dizziness - Referrals - Patient Instructions - Post Discharge Activity
--- NOTE | 2019-02-17 00:07 | HP ---
CHIEF COMPLAINT: vomiting, dizziness PCP: Dr. Anaya Currie HISTORY OF PRESENT ILLNESS: Mary Stephen is an 83 year old Chinese-speaking female with a past medical history of colon CA (s/p resection), HIV (02/09/19 CD4 716, HIV RNA 120), patient at the [facility] who presents with a one day history of vomiting and dizziness. The patient was in her usual state of health until this morning when she had 3 episodes of non-bloody, non-bilious vomiting at home with some mild abdominal pain. Additionally she endorsed dizziness after the vomiting as well as a headache. She denies other associated symptoms of visual changes, weakness , numbness or tingling, chest pain, shortness of breath, constipation, diarrhea. Denied dysuria, frequency, hesitancy, incomplete emptying of bladder. Stated she was eating well and had regular bowel movements with the most recent one being on the day of admission which was a full formed bowel movement. Denies sick contacts, recent travel. Stated she had been taking all of her medication regularly. Daughter at bedside notes that the patient is at her baseline mental status. Patient had 2 episodes of vomiting while in the ED. At interview, the patient stated she was feeling better with no further dizziness, abdominal pain, nausea or vomiting. ER course was notable for: (1) WBC 18.1, neut 54, MCV 106.6 (2) UA 3+ protein, + nitrites, 1+ LE, 5 WBC, 16.8 WBC (3) CT Abd/pelvis showing fecal retention, no bowel obstruction or other acute pathology (4) Given 1 dose of ceftriaxone, meclizine, zofran, NSx1 Recent Travel: denies PAST MEDICAL HISTORY: as above PAST SURGICAL HISTORY: colon resection hysterectomy cholectystectomy ?appendectomy (patient unsure but hx in chart) Social History: Smoking: denies Alcohol: denies Drugs: denies Lives by herself in an apartment and is visited often by daughter Family History: denies significant family history Allergies codeine [Codeine] Allergy (Unknown, Verified 02/16/19 17:10) HOME MEDICATIONS: Home Medications Medication Instructions Recorded Abacavir Sulfate/Lamivudine 1 tablet PO DAILY #30 tablet 04/07/18 [Epzicom Tablet] Brimonidine Tartrate/Timolol 1 drop OP DAILY #1 bottle 09/22/18 [Combigan 0.2%-0.5% Eye Drops] Aspirin [Aspirin EC] 1 tab PO DAILY #30 tablet. 02/09/19 Cyproheptadine [Periactin -] 1 tab PO HS #30 tablet 02/09/19 Rilpivirine HCl [Edurant] 1 tab PO DAILY #30 tablet 02/09/19 REVIEW OF SYSTEMS CONSTITUTIONAL: Absent: fever, chills, diaphoresis, generalized weakness, malaise, loss of appetite, HEENT: Absent: rhinorrhea, nasal congestion, throat pain, throat swelling, difficulty swallowing, visual changes CARDIOVASCULAR: Absent: chest pain, syncope, palpitations, irregular heart rate, lightheadedness , peripheral edema RESPIRATORY: Absent: cough, shortness of breath, dyspnea with exertion, orthopnea, wheezing, GASTROINTESTINAL: abdominal pain, nausea, vomiting Absent: abdominal distension, diarrhea, constipation, melena, hematochezia GENITOURINARY: Absent: dysuria, frequency, urgency, hesitancy, hematuria, flank pain MUSCULOSKELETAL: Absent: myalgia, arthralgia, joint swelling, back pain, neck pain SKIN: Absent: rash, itching, pallor HEMATOLOGIC/IMMUNOLOGIC: Absent: easy bleeding, easy bruising, lymphadenopathy, frequent infections ENDOCRINE: Absent: unexplained weight gain, unexplained weight loss, heat intolerance, cold intolerance NEUROLOGIC: headache, dizziness Absent: focal weakness or paresthesias, unsteady gait, seizure, mental status changes PSYCHIATRIC: Absent: anxiety, depression, suicidal or homicidal ideation, hallucinations. PHYSICAL EXAMINATION Vital Signs - 24 hr 02/16/19 17:08 Temperature 97.7 F Pulse Rate 82 Respiratory 19 Rate Blood Pressure 147/70 O2 Sat by Pulse 100 Oximetry (%) GENERAL: Awake, alert, and fully oriented, in no acute distress. HEAD: Normal with no signs of trauma. EYES: Pupils equal, round and reactive to light, extraocular movements intact, sclera anicteric, conjunctiva clear. EARS, NOSE, THROAT: Oropharynx clear without exudates. Moist mucous membranes. NECK: Normal range of motion, supple without lymphadenopathy, JVD. LUNGS: Breath sounds equal, clear to auscultation bilaterally. No wheezes, and no crackles. No accessory muscle use. HEART: Regular rate and rhythm, normal S1 and S2 without murmur, rub or gallop. ABDOMEN: Soft, nontender, not distended, normoactive bowel sounds, no guarding, no rebound, no masses. MUSCULOSKELETAL: Normal range of motion at all joints. No CVA tenderness. UPPER EXTREMITIES: 2+ pulses, warm, well-perfused. No cyanosis. No clubbing. No peripheral edema. LOWER EXTREMITIES: 2+ pulses, warm, well-perfused. No calf tenderness. No peripheral edema. NEUROLOGICAL: Cranial nerves II-XII intact. 5/5 muscle strength bilaterally upper and lower extremities. PSYCHIATRIC: Cooperative. Good eye contact. Appropriate mood and affect. SKIN: Warm, dry, normal turgor, no rashes or lesions noted, normal capillary refill. Laboratory Results - last 24 hr 02/16/19 02/16/19 02/16/19 17:39 17:39 17:39 WBC 18.1 H RBC 3.94 Hgb 13.6 Hct 42.0 MCV 106.6 H MCH 34.4 H MCHC 32.3 RDW 14.6 Plt Count 331 MPV 8.9 Absolute Neuts (auto) 15.3 H Neutrophils % 84.7 H D Lymphocytes % 7.7 L D Monocytes % 6.4 Eosinophils % 0.8 D Basophils % 0.4 Nucleated RBC % 0 Macrocytosis 2+ Sodium 141 Potassium 3.5 Chloride 104 Carbon Dioxide 29 Anion Gap 8 BUN 14.6 Creatinine 1.0 Est GFR (CKD-EPI)AfAm 61.19 Est GFR (CKD-EPI)NonAf 52.79 Random Glucose 127 H Lactic Acid Calcium 9.2 Magnesium 2.5 H Total Bilirubin 0.4 AST 21 ALT 18 Alkaline Phosphatase 145 H Creatine Kinase 82 Troponin I < 0.02 Total Protein 7.6 Albumin 3.7 Urine Color Urine Appearance Urine pH Ur Specific [place] Urine Protein Urine Glucose (UA) Urine Ketones Urine Blood Urine Nitrite Urine Bilirubin Urine Urobilinogen Ur Leukocyte Esterase Urine WBC (Auto) Urine RBC (Auto) Urine Casts (Auto) U Epithel Cells (Auto) Urine Bacteria (Auto) 02/16/19 02/16/19 18:01 18:45 WBC RBC Hgb Hct MCV MCH MCHC RDW Plt Count MPV Absolute Neuts (auto) Neutrophils % Lymphocytes % Monocytes % Eosinophils % Basophils % Nucleated RBC % Macrocytosis Sodium Potassium Chloride Carbon Dioxide Anion Gap BUN Creatinine Est GFR (CKD-EPI)AfAm Est GFR (CKD-EPI)NonAf Random Glucose Lactic Acid 1.5 Calcium Magnesium Total Bilirubin AST ALT Alkaline Phosphatase Creatine Kinase Troponin I Total Protein Albumin Urine Color Dk yellow Urine Appearance Clear Urine pH 5.0 Ur Specific [place] 1.015 Urine Protein 3+ H Urine Glucose (UA) Negative Urine Ketones Negative Urine Blood Trace Urine Nitrite Positive H Urine Bilirubin 1+ H Urine Urobilinogen 1.0 Ur Leukocyte Esterase 1+ H Urine WBC (Auto) 5 Urine RBC (Auto) 4 Urine Casts (Auto) 3 U Epithel Cells (Auto) 8.2 Urine Bacteria (Auto) 16.8 EKG--> NSR, no ST segment changes, QTc 476 ASSESSMENT/PLAN: Mary Stephen is an 83 year old Chinese-speaking female with a past medical history of colon CA (s/p resection), HIV admitted for UTI. UTI Nausea/vomiting HIV UTI - low suspicion of UTI as patient has no symptoms, UA with increased epithelial cell and may be non-clean catch - one dose of ceftriaxone given in ED - continue ceftriaxone 1g daily if further suspicion of UTI - urine cx pending - trend CBC as WBC elevated, monitor for fevers, signs of infection - Abd/pelvis CT as above - transition to PO or discontinue if no UTI suspected Nausea/vomiting - unclear reason of vomiting, no resolved with ZOfran - compazine for nausea HIV - last CD4 716, HIV RNA 120 - continue home medications - confirm with pharmacy as to dosage FEN - no standing fluids unless not tolerating PO - continue to monitor electrolytes and replete as necessary - regular diet Prophylaxis - heparin 5000 units subq tid Code - full code MISA PRADHAN DO - PGY-1 Visit type - Emergency Visit Emergency Visit: Yes ED Registration Date: 02/16/19 Care time: The patient presented to the Emergency Department on the above date and was hospitalized for further evaluation of their emergent condition. - New Patient This patient is new to me today: Yes Date on this admission: 02/17/19 - Critical Care Critical Care patient: No
[2019-02-17] MEDS ORDERED: PROCHLORPERAZINE MALEATE 5 MG TABLET PO PRN (00:26)
[2019-02-17] MEDS ORDERED: ACETAMINOPHEN 325 MG TABLET (FP) PO PRN (03:48)
--- NOTE | 2019-02-17 04:53 | PN ---
Teaching Attending Note Name of Resident: Corona Britt ATTENDING PHYSICIAN STATEMENT I saw and evaluated the patient. I reviewed the resident's note and discussed the case with the resident. I agree with the resident's findings and plan as documented. SUBJECTIVE: 83 year old woman with a past medical history of colon CA (s/p resection), well controlled HIV presented with day fof bilious, nonbloody vomiting. had about 3 -4 episodes of vomiting. No fevers or diarrhea. Feels better now. OBJECTIVE: Last Vital Signs Temp Pulse Resp BP Pulse Ox 98.3 F 95 H 18 139/61 99 02/17/19 03:40 02/17/19 03:40 02/17/19 03:40 02/17/19 03:40 02/17/19 03:40 physical exam was wnl Abnormal Lab Results 02/16/19 02/16/19 02/16/19 17:39 17:39 17:39 WBC 18.1 H MCV 106.6 H MCH 34.4 H Absolute Neuts (auto) 15.3 H Neutrophils % 84.7 H D Lymphocytes % 7.7 L D Random Glucose 127 H Magnesium 2.5 H Alkaline Phosphatase 145 H Urine Protein Urine Nitrite Urine Bilirubin Ur Leukocyte Esterase 02/16/19 18:01 WBC MCV MCH Absolute Neuts (auto) Neutrophils % Lymphocytes % Random Glucose Magnesium Alkaline Phosphatase Urine Protein 3+ H Urine Nitrite Positive H Urine Bilirubin 1+ H Ur Leukocyte Esterase 1+ H ASSESSMENT AND PLAN: Acute nausea/vomiting - gastroenteritis? Now resolved. Patient tolerates PO. No UTI since no urinary symptoms. Leukocytosis- reactive? no evidence of infection -med/surg -advance diet -continue home meds - zofran iv prn if vomiting -iv fluid hydration -monitor wbc -no antibiotics at this time -see resident note for details
[2019-02-17] MEDS: HEPARIN NA (PORCINE) 5,000 UNITS/ML 1ML VIAL SQ SCH ×2 (06:36→13:31)
[2019-02-17 07:29] LABS: BASO % 0.6 % (0-2.0); EOS % 1.6 % (0-4.5); HEMATOCRIT 39.9 % (32.4-45.2); HEMOGLOBIN 12.9 GM/dL (10.7-15.3); LYMPH % 17.8 % (8-40); MCH 34.4 pg (25.7-33.7); MCHC 32.5 g/dl (32.0-36.0); MEAN CELL VOLUME 105.8 fl (80-96); MEAN PLT VOLUME 8.4 fl (7.5-11.1); MONO % 8.4 % (3.8-10.2); NEUT % 71.6 % (42.8-82.8); PLATELET COUNT 309 K/MM3 (134-434); RBC 3.77 M/mm3 (3.60-5.2); RDW 14.7 % (11.6-15.6); WHITE BLOOD COUNT 10.7 K/mm3 (4.0-10.0)
[2019-02-17 07:58] LABS: ALBUMIN 3.2 g/dl (3.4-5.0); BILIRUBIN,TOTAL 0.4 mg/dL (0.2-1); BLOOD UREA NITROGEN 13.9 mg/dL (7-18); CALCIUM 8.5 mg/dL (8.5-10.1); CREATININE 0.8 mg/dL (0.55-1.3); MAGNESIUM 2.4 mg/dL (1.8-2.4); POTASSIUM 3.6 mmol/L (3.5-5.1); TOT PROT 6.8 g/dl (6.4-8.2)
[2019-02-17] MEDS ORDERED: RILPIVIRINE HCL 25 MG TABLET PO SCH (10:00)
[2019-02-17] MEDS ORDERED: lamiVUDine 150 MG TABLET PO SCH (10:00)
[2019-02-17] MEDS ORDERED: PATIENT'S OWN MEDICATION (NON-FORMULARY) (Brimonidine Tartrate/Timolol [Combigan 0.2%-0.5% OP SCH (10:00)
[2019-02-17] MEDS ORDERED: PATIENT'S OWN MEDICATION (NON-FORMULARY) (Abacavir Sulfate/Lamivudine [Epzicom Tablet] 1 T PO SCH (10:00)
[2019-02-17] MEDS ORDERED: TIMOLOL 0.5% OPHTHALMIC SOL 5 ML BOTTLE OU SCH (10:00)
[2019-02-17] MEDS ORDERED: ABACAVIR SULFATE 300 MG TABLET PO SCH (10:00)
[2019-02-17] MEDS ORDERED: BRIMONIDINE TARTRATE 0.2% OPHTHALMIC 5 ML BOTTLE OU SCH (10:00)
[2019-02-17] MEDS ORDERED: ASPIRIN COATED 81 MG TABLET.EC PO SCH (10:00)
[2019-02-17] MEDS ORDERED: SENNOSIDES 8.6MG TABLET (FP) PO ONE (12:30)
[2019-02-17] MEDS ORDERED: POLYETHYLENE GLYCOL 3350 119 GM BTL PO ONE (12:30)
[2019-02-17] MEDS ORDERED: DOCUSATE SODIUM 100 MG CAPSULE (FP) PO ONE (12:30)
[2019-02-17] MEDS ORDERED: PT OWN MED DRAWER 7, Y5N ONE (13:15)
[2019-02-17 13:24] VITALS: BP 136/67; PULSE 95; TEMP 97.8
--- NOTE | 2019-02-17 13:38 | PN ---
Teaching Attending Note Name of Resident: Kimmy Ibrahim ATTENDING PHYSICIAN STATEMENT I saw and evaluated the patient. I reviewed the resident's note and discussed the case with the resident. I agree with the resident's findings and plan as documented. SUBJECTIVE:asymptomatic. states she feels good and tolerated diet. no more vomiting then first arrived in the ER. denies Cp, SOB, fever, chills, N/V/C/D, no other sick contacts. no new foods. dysuria, urinary frequency. states she has 1 small BM most days OBJECTIVE: Last Vital Signs Temp Pulse Resp BP Pulse Ox 97.8 F 95 H 20 136/67 99 02/17/19 13:22 02/17/19 13:22 02/17/19 13:22 02/17/19 13:22 02/17/19 03:40 General NAD CV S1 s2 RRR no murmur/rub/gallop Lungs CTA B/L no wheezing/rales/rhonchi Abdomen soft NT/ND no suprapubic tenderness/distention ASSESSMENT AND PLAN: 83yo F with PMH colon ca s/p resection and IV on HARRT presented with vomiting 1. Vomiting- likely gastroenteritis vs food related. leukocytosis likely reactive and now resolved. no repeat episodes. CT imaging only showing fecal retention. diet tolerated. 2. +UA- pt is not symptomatic. received ceftraixone in the ER. will hold further abx and follow culture. will call if needs treatment 3. Fecal impaction- advised on dietary changes. diet is high in rice. miralax and gerard. advised for 2 BM daily for next few days adn then can adjust medications as needed 4. d/c home with PMD follow up as outpatient.
--- NOTE | 2019-02-17 13:58 | DS ---
Physical Exam: SUBJECTIVE: Patient seen and examined OBJECTIVE: Vital Signs Period Temp Pulse Resp BP Sys/Blake Pulse Ox Last 24 Hr 97.7 F-98.7 F 82-95 18-20 122-147/61-73 96-100 PHYSICAL EXAM GENERAL: The patient is awake, alert, and fully oriented, in no acute distress. HEAD: Normal with no signs of trauma. EYES: PERRL, extraocular movements intact, sclera anicteric, conjunctiva clear. ENT: Ears normal, nares patent, oropharynx clear without exudates, moist mucous membranes. NECK: Trachea midline, full range of motion, supple. LUNGS: Breath sounds equal, clear to auscultation bilaterally, no wheezes, no crackles, no accessory muscle use. HEART: Regular rate and rhythm, S1, S2 without murmur, rub or gallop. ABDOMEN: Soft, nontender, nondistended, normoactive bowel sounds, no guarding, no rebound, no hepatosplenomegaly, no masses. EXTREMITIES: 2+ pulses, warm, well-perfused, no edema. NEUROLOGICAL: Cranial nerves II through XII grossly intact. Normal speech, gait not observed. PSYCH: Normal mood, normal affect. SKIN: Warm, dry, normal turgor, no rashes or lesions noted. LABS Laboratory Results - last 24 hr 02/16/19 02/16/19 02/16/19 17:39 17:39 17:39 WBC 18.1 H RBC 3.94 Hgb 13.6 Hct 42.0 MCV 106.6 H MCH 34.4 H MCHC 32.3 RDW 14.6 Plt Count 331 MPV 8.9 Absolute Neuts (auto) 15.3 H Neutrophils % 84.7 H D Lymphocytes % 7.7 L D Monocytes % 6.4 Eosinophils % 0.8 D Basophils % 0.4 Nucleated RBC % 0 Macrocytosis 2+ Sodium 141 Potassium 3.5 Chloride 104 Carbon Dioxide 29 Anion Gap 8 BUN 14.6 Creatinine 1.0 Est GFR (CKD-EPI)AfAm 61.19 Est GFR (CKD-EPI)NonAf 52.79 Random Glucose 127 H Lactic Acid Calcium 9.2 Magnesium 2.5 H Total Bilirubin 0.4 AST 21 ALT 18 Alkaline Phosphatase 145 H Creatine Kinase 82 Troponin I < 0.02 Total Protein 7.6 Albumin 3.7 Urine Color Urine Appearance Urine pH Ur Specific [place] Urine Protein Urine Glucose (UA) Urine Ketones Urine Blood Urine Nitrite Urine Bilirubin Urine Urobilinogen Ur Leukocyte Esterase Urine WBC (Auto) Urine RBC (Auto) Urine Casts (Auto) U Epithel Cells (Auto) Urine Bacteria (Auto) 02/16/19 02/16/19 02/17/19 18:01 18:45 07:00 WBC 10.7 H RBC 3.77 Hgb 12.9 Hct 39.9 MCV 105.8 H MCH 34.4 H MCHC 32.5 RDW 14.7 Plt Count 309 MPV 8.4 Absolute Neuts (auto) 7.7 Neutrophils % 71.6 Lymphocytes % 17.8 D Monocytes % 8.4 Eosinophils % 1.6 D Basophils % 0.6 Nucleated RBC % 0 Macrocytosis Sodium Potassium Chloride Carbon Dioxide Anion Gap BUN Creatinine Est GFR (CKD-EPI)AfAm Est GFR (CKD-EPI)NonAf Random Glucose Lactic Acid 1.5 Calcium Magnesium Total Bilirubin AST ALT Alkaline Phosphatase Creatine Kinase Troponin I Total Protein Albumin Urine Color Dk yellow Urine Appearance Clear Urine pH 5.0 Ur Specific [place] 1.015 Urine Protein 3+ H Urine Glucose (UA) Negative Urine Ketones Negative Urine Blood Trace Urine Nitrite Positive H Urine Bilirubin 1+ H Urine Urobilinogen 1.0 Ur Leukocyte Esterase 1+ H Urine WBC (Auto) 5 Urine RBC (Auto) 4 Urine Casts (Auto) 3 U Epithel Cells (Auto) 8.2 Urine Bacteria (Auto) 16.8 02/17/19 07:00 WBC RBC Hgb Hct MCV MCH MCHC RDW Plt Count MPV Absolute Neuts (auto) Neutrophils % Lymphocytes % Monocytes % Eosinophils % Basophils % Nucleated RBC % Macrocytosis Sodium 140 Potassium 3.6 Chloride 108 H Carbon Dioxide 27 Anion Gap 5 L BUN 13.9 Creatinine 0.8 Est GFR (CKD-EPI)AfAm 80.14 Est GFR (CKD-EPI)NonAf 69.14 Random Glucose 100 Lactic Acid Calcium 8.5 Magnesium 2.4 Total Bilirubin 0.4 AST 17 ALT 15 Alkaline Phosphatase 129 H Creatine Kinase Troponin I Total Protein 6.8 Albumin 3.2 L Urine Color Urine Appearance Urine pH Ur Specific [place] Urine Protein Urine Glucose (UA) Urine Ketones Urine Blood Urine Nitrite Urine Bilirubin Urine Urobilinogen Ur Leukocyte Esterase Urine WBC (Auto) Urine RBC (Auto) Urine Casts (Auto) U Epithel Cells (Auto) Urine Bacteria (Auto) HOSPITAL COURSE: Date of Admission:02/16/19 Date of Discharge: 02/17/19 Discharge Summary Reason For Visit: URINARY TRACT INFECTION, LEUKOCYTOSIS, VOMITING Current Active Problems Leukocytosis (Acute) Nausea (Acute) UTI (urinary tract infection) (Acute) Vomiting (Acute) Condition: Stable - Instructions Diet, Activity, Other Instructions: Hospital course: You were admitted to the hospital for nausea, and vomiting. Your urine studies were concerning for an infection, and you were treated with antibiotic. You are stable for discharge home. Medication recommendations: Continue taking your home medications as directed. We will be calling you by the end of the week if your urine culture results require antibiotic treatment. Follow up recommendations: Follow up with your primary care physician within one week of discharge. Return to the nearest Emergency Department if you experience worsening symptoms , difficulty breathing, shortness of breath, subjective fevers, chills, shortness of breath, chest pain, palpitations, abdominal pain, nausea, vomiting. Disposition: HOME - Home Medications Comprehensive Discharge Medication List: Ambulatory Orders Abacavir Sulfate/Lamivudine [Epzicom Tablet] 1 tablet PO DAILY #30 tablet Brimonidine Tartrate/Timolol [Combigan 0.2%-0.5% Eye Drops] 1 drop OP DAILY #1 bottle 09/22/18 Aspirin [Aspirin EC] 1 tab PO DAILY #30 tablet. 02/09/19 Cyproheptadine [Periactin -] 1 tab PO HS #30 tablet 02/09/19 Rilpivirine HCl [Edurant] 1 tab PO DAILY #30 tablet 02/09/19 ATTENDING PHYSICIAN STATEMENT I saw and evaluated the patient. I reviewed the resident's note and discussed the case with the resident. I agree with the resident's findings and plan as documented. SUBJECTIVE: OBJECTIVE: ASSESSMENT AND PLAN:
--- NOTE | 2019-02-17 14:07 | EKG ---
Test Reason : Blood Pressure : / mmHG Vent. Rate : 085 BPM Atrial Rate : 085 BPM P-R Int : 150 ms QRS Dur : 070 ms QT Int : 400 ms P-R-T Axes : 055 034 056 degrees QTc Int : 476 ms POOR DATA QUALITY, INTERPRETATION MAY BE ADVERSELY AFFECTED NORMAL SINUS RHYTHM NORMAL ECG WHEN COMPARED WITH ECG OF 10-JUN-2016 17:01, [place] INTERVAL HAS DECREASED Confirmed by THOMAS JUDGE, JOHN ([id number]) on 02/17/2019 2:07:04 PM Referred By: Confirmed By:JOHN GUZMAN MD
[2019-02-17 15:10] VITALS: BMI 22.8
[2019-02-17] MEDS ORDERED: CEFTRIAXONE 1 GM in DEXTROSE 5%-WATER - 50 ML IVPB SCH (20:00)
[2019-02-17] MEDS ORDERED: CYPROHEPTADINE HCL 4 MG TABLET PO SCH (22:00)
== END 2019-02-17 15:40 | disposition home or self-care (01) | DRG 392 ==
LOC: JER 16:58 → JERBED 23:18 → J7W 02-17 02:50
PROVIDERS: ADMIT Internal Medicine; ATTEND Internal Medicine
DX: K52.9 Noninfective gastroenteritis and colitis, unspecified (principal); N39.0 Urinary tract infection, site not specified; R11.10 Vomiting, unspecified; A05.9 Bacterial foodborne intoxication, unspecified; D72.829 Elevated white blood cell count, unspecified; Z21 Asymptomatic human immunodeficiency virus [HIV] infection status; K56.41 Fecal impaction
CPT/HCPCS: 36415; 71046-TC-FY; 74177-TC; 80053; 81003; 82550; 83605; 83735; 84484; 85025; 87086; 93005; 93010; 97116-GP; 97161-GP; 99284-25; J1644; J7030; Q0162; Q9967